=== PATIENT | female | born 1945 | race Caucasian/White ===

== ENCOUNTER 2022-04-09 07:58 | Outpatient (CLI) | payer MEDICARE, OTHER, SELFPAY ==
[2022-04-09 08:12] VITALS: BP 143/76; PULSE 68; RESP 16; TEMP 37; O2SAT 95
[2022-04-09 08:45] VITALS: BP 136/57; PULSE 74; RESP 14; O2SAT 99
--- NOTE | 2022-04-09 08:51 | DI.RAD_ITS ---
Exam(s) XR PAIN CLINIC SACRIOILIAC 2V EXAM: XR PAIN CLINIC SACRIOILIAC 2V CLINICAL HISTORY: Dx: Sacroiliac Joint Dysfunction TECHNIQUE: 2D and realtime digital imaging was performed. Radiologist not present. CONTRAST MATERIAL: None. COMPARISON: No exams were available for comparison FINDINGS: Fluoroscopy was provided for pain management therapy. Please refer to procedure report or details. Right SI joint injection. Cumulative dose: Ka,r=3.89 mGy IMPRESSION: RADIATION DOSE DELIVERED:
[2022-04-09] MEDS: Omnipaque 240 MG/ML 50 ML BTL IJ (08:55)
[2022-04-09] MEDS: methylPREDNISolone ACETATE 80 MG/ML VIAL IJ (08:56)
--- NOTE | 2022-04-09 09:00 | PDOC.PAIN_ITS ---
Pain Clinic Procedure Note Procedure Note Procedure Note: INTRA-ARTICULAR SI JOINT INJECTION Shaye Grande has been referred to the [facility] for intra-articular SI joint injection. COMMENTS: She was evaluated in our clinic by Dr. Juan on 01/14/22. Her pre- procedure pain VAS was 2/10. Dx: Sacroiliac joint dysfunction Patient was interviewed and the medical record reviewed. There were no medical, pharmacologic, radiographic or other structural contraindications to attempting fluoroscopically guided intra-articular SI joint injection. Risks and expected side effects as well as potential benefit of the procedure were reviewed and voiced concerns addressed. The printed consent form was signed and witnessed. Standard time-out procedure was performed. Patient was placed in the prone position on the fluoroscopy table and automated blood pressure cuff and pulse oximeter applied. The skin entry point for approaching the right SI joint was identified under the most advantageous fluoroscopic view and marked. Following thorough Chlorhexadine preparation of the skin and draping and 1% lidocaine infiltration of the skin entry point and subcutaneous tissues, a 22 gauge spinal needle was placed under fluoroscopic guidance into the right SI joint was identified under the most advantageous fluoroscopic view and marked. Intra-articular placement was confirmed by a clear arthrogram resulting from the injection of 0.25ml Omnipaque 240. I next injected 80mg Depomedrol followed by 2 cc of 1% Lidocaine intra-articularily with an initial reproduction of a significant component of the usual pain. Vital signs were stable throughout the procedure and were as recorded in the docflowsheet by the nursing staff. If given, dosages of intravenous drugs for anxiolysis and analgesia were documented in MAR. Follow up plans and appointments were discussed with the patient. Post procedure instruction was given as documented in nursing documentation and having met discharge criteria, and was discharged from the [facility]. COMMENTS: Post-procedure pain VAS was 0/10. Demian Marx DO, MPH [facility]-Pain Management [facility] CC: Unknown,Unknown
== END 2022-04-09 07:59 | disposition home or self-care (01) ==
LOC: PC 07:59
PROVIDERS: Visit Provider Preventive Medicine Occupational Medicine
DX: M53.3 Sacrococcygeal disorders, not elsewhere classified (principal)
CPT/HCPCS: 27096; 72200; J1040; Q9967

== ENCOUNTER 2022-11-18 10:39 | Outpatient (CLI) | payer MEDICARE, SELFPAY ==
--- NOTE | 2022-11-18 06:00 | DI.RAD_ITS ---
Exam(s) XR PAIN CLINIC SACRIOILIAC 2V EXAM: XR PAIN CLINIC SACRIOILIAC 2V CLINICAL HISTORY: Dx: Sacroiliac Joint Dysfunction. TECHNIQUE: Fluoroscopy was provided for the referring physician for guidance with performing pain cl inic injection procedure. COMPARISON: No exams were available for comparison FINDINGS: Please see procedure note for details. Fluoro time: 13.5 seconds RADIATION DOSE DELIVERED: Ka,r=2.36 mGy
[2022-11-18 10:47] VITALS: BP 132/78; PULSE 63; RESP 20; TEMP 36.7; O2SAT 99
[2022-11-18] MEDS: Omnipaque 240 MG/ML 50 ML BTL IJ (11:50)
[2022-11-18] MEDS: methylPREDNISolone ACETATE 80 MG/ML VIAL IJ (11:50)
[2022-11-18 11:52] VITALS: BP 142/68; PULSE 65; RESP 12; O2SAT 98
--- NOTE | 2022-11-18 13:46 | PDOC.PAIN ---
Date of service: 11/18/22 Time of Service: 11:30 Pain Clinic Procedure Note Procedure Note Procedure Note: INTRA-ARTICULAR SI JOINT INJECTION Shaye Grande has been referred to the [facility] for intra-articular SI joint injection. COMMENTS: Pre-procedure pain VAS was 6/10. Dx: Sacroiliac joint dysfunction. She had this procedure on 04/09/2022 and had 5 months of excellent pain relief. Patient was interviewed and the medical record reviewed. There were no medical, pharmacologic, radiographic or other structural contraindications to attempting fluoroscopically guided intra-articular SI joint injection. Risks and expected side effects as well as potential benefit of the procedure were reviewed and voiced concerns addressed. The printed consent form was signed and witnessed. Standard time-out procedure was performed. Patient was placed in the prone position on the fluoroscopy table and automated blood pressure cuff and pulse oximeter applied. The skin entry point for approaching the right SI joint was identified under the most advantageous fluoroscopic view and marked. Following thorough Chlorhexadine preparation of the skin and draping and 1% lidocaine infiltration of the skin entry point and subcutaneous tissues, a 22 gauge spinal needle was placed under fluoroscopic guidance into the right SI joint was identified under the most advantageous fluoroscopic view and marked. Intra-articular placement was confirmed by a clear arthrogram resulting from the injection of 0.25ml Omnipaque 240, 1ml 1% lidocaine, and 40mg Depomedrol were injected intra-articularily with an initial reproduction of a significant component of the usual pain. Vital signs were stable throughout the procedure and were as recorded in the docflowsheet by the nursing staff. If given, dosages of intravenous drugs for anxiolysis and analgesia were documented in MAR. Follow up plans and appointments were discussed with the patient. Post procedure instruction was given as documented in nursing documentation and having met discharge criteria, and was discharged from the [facility]. COMMENTS: Post-procedure pain VAS was 0/10. This procedure can be completed up to 3 times per 12 months if it is found to be successful. Demian Marx DO, MPH [facility]-Pain Management [facility]-Center for Pain Management CC:
== END 2022-11-18 10:40 | disposition home or self-care (01) ==
LOC: PC 10:39
PROVIDERS: Visit Provider Preventive Medicine Occupational Medicine
DX: M53.3 Sacrococcygeal disorders, not elsewhere classified (principal); M54.50 Low back pain, unspecified
CPT/HCPCS: 27096; 72200; G0260; J1040; Q9967

== ENCOUNTER → 2025-02-19 14:02 | Outpatient (BNVA) | payer MEDICARE, SELFPAY | PROVIDERS: PCP Family Medicine; Referring Provider Family Medicine; Visit Provider Student in an Organized Health Care Education/Training Program | DX: M17.12 Unilateral primary osteoarthritis, left knee (principal); M16.12 Unilateral primary osteoarthritis, left hip; M25.562 Pain in left knee | CPT/HCPCS: 20610; J1010 ==

== ENCOUNTER → 2025-05-17 09:38 | Outpatient (BNVA) | payer MEDICARE, SELFPAY | PROVIDERS: PCP Family Medicine; Referring Provider Family Medicine; Visit Provider Student in an Organized Health Care Education/Training Program | DX: M16.12 Unilateral primary osteoarthritis, left hip (principal); M17.12 Unilateral primary osteoarthritis, left knee | CPT/HCPCS: 20611; 99214; J1010 ==